=== PATIENT | female | born 1980 | race African-American/Black ===

== ENCOUNTER 2016-12-09 09:30 | Emergency (ER) | payer OTHER ==
[2016-12-09 09:42] VITALS: BP 110/77
--- NOTE | 2016-12-09 09:58 | ER Document Report ---
ED General - General Chief Complaint: Nausea/Vomiting/Diarrhea Stated Complaint: CONGESTION,SWEATS Time Seen by Provider: 12/09/16 09:52 TRAVEL OUTSIDE OF THE [place] IN LAST 30 DAYS: No - Related Data Allergies/Adverse Reactions: amoxicillin Allergy (Verified 12/09/16 09:42) Past Medical History - Social History Smoking Status: Never Smoker Chew tobacco use (# tins/day): No Frequency of alcohol use: None Drug Abuse: None Family History: Reviewed & Not Pertinent Renal/ Medical History: Denies: Hx Peritoneal Dialysis Past Surgical History: Reports: Hx Breast Surgery - L breast biopsy, Hx Oral Surgery, Hx Orthopedic Surgery - R and L ankle surgery in 2014 - Immunizations Hx Diphtheria, Pertussis, Tetanus Vaccination: Yes Physical Exam - Vital signs Vitals: Temp Pulse Resp BP Pulse Ox 99.5 F 119 H 18 110/77 100 12/09/16 09:37 12/09/16 09:37 12/09/16 09:37 12/09/16 09:37 12/09/16 09:37 Course - Vital Signs Vital signs: Temp Pulse Resp BP Pulse Ox 99.5 F 119 H 18 110/77 100 12/09/16 09:37 12/09/16 09:37 12/09/16 09:37 12/09/16 09:37 12/09/16 09:37 Discharge - Discharge Clinical Impression: Sinusitis Qualifiers: Sinusitis location: unspecified location Chronicity: unspecified Qualified Code (s): J32.9 - Chronic sinusitis, unspecified Condition: Good Disposition: HOME, SELF-CARE Instructions: Sinusitis ([facility]), Nausea or Vomiting, Nonspecific ([facility]) Additional Instructions: Examination is consistent with a sinus infection. Please take Zyrtec as prescribed please take antibiotics and prednisone as prescribed. We will send you home with Zofran for nausea. You can expect to have more diarrhea is that this is a side effect of antibiotics. Highly recommended to eat yogurt and increase your fiber intake. Please drink plenty of water and fluid containing electrolytes such as Gatorade or Powerade. Highly recommend he follow-up with ENT clinic in your primary care physician. Prescriptions: Ondansetron [Zofran Odt 4 mg Tablet] 4 mg PO Q4HP PRN #30 tab.rapdis PRN Reason: Azithromycin [Zithromax 250 mg Tablet] 500 mg PO DAILY #6 tab Cetirizine HCl [Zyrtec] 10 mg PO DAILY #30 tablet Prednisone [Deltasone 20 mg Tablet] 2 tab PO DAILY 5 Days Forms: Return to Work Referrals: ENT [Provider Group] - Follow up as needed [facility] [Provider Group] - Follow up as needed
== END 2016-12-09 10:00 | disposition home or self-care (01) ==
LOC: ER 09:30
DX: J32.9 Chronic sinusitis, unspecified (principal); R11.2 Nausea with vomiting, unspecified; R19.7 Diarrhea, unspecified
CPT/HCPCS: 99283

== ENCOUNTER 2017-01-18 16:51 | Emergency (ER) | payer OTHER ==
[2017-01-18] MEDS ORDERED: HYDROCODONE/ACETAMINOPHEN 5-325 MG 6 TAB/DSPK PO PRN (18:21)
--- NOTE | 2017-01-18 18:28 | ER Document Report ---
ED Hand/Wrist Injury - General Chief Complaint: Finger Injury Stated Complaint: RIGHT FINGER PAIN Time Seen by Provider: 01/18/17 17:56 Mode of Arrival: Ambulatory Information source: Patient Notes: 26-year-old female presents to ED for avulsion of the right middle fingernail. She states it lifted up some on Monday and then fell off today. [facility]. There is no redness no swelling no signs of infection. TRAVEL OUTSIDE OF THE [place] IN LAST 30 DAYS: No - HPI Injury to: Middle finger - Right Onset: Other - See HPI Where: Home Timing: Still present Quality of pain: Throbbing Severity: Moderate Pain Level: 3 Context: Other - Accidentally hit nail injuring her nail on Monday and then the nail fell off today. - Related Data Allergies/Adverse Reactions: amoxicillin Allergy (Verified 01/18/17 16:56) Past Medical History - General Information source: Patient - Social History Smoking Status: Never Smoker Cigarette use (# per day): No Chew tobacco use (# tins/day): No Smoking Education Provided: No Frequency of alcohol use: None Drug Abuse: None Family History: Reviewed & Not Pertinent Patient has suicidal ideation: No Patient has homicidal ideation: No - Past Medical History Cardiac Medical History: Reports: None Pulmonary Medical History: Reports: None EENT Medical History: Reports: None Neurological Medical History: Reports: None Endocrine Medical History: Reports: None Renal/ Medical History: Reports: None Malignancy Medical History: Reports: None GI Medical History: Reports: None Musculoskeltal Medical History: Reports Hx Musculoskeletal Deformity, Reports Hx Musculoskeletal Trauma Skin Medical History: Reports None Psychiatric Medical History: Reports: None Infectious Medical History: Reports: None Past Surgical History: Reports: Hx Breast Surgery - L breast biopsy, Hx Oral Surgery - Dental, Hx Orthopedic Surgery - R and L ankle surgery in 2014 - Immunizations Hx Diphtheria, Pertussis, Tetanus Vaccination: Yes Review of Systems - Review of Systems Constitutional: No symptoms reported EENT: No symptoms reported Cardiovascular: No symptoms reported Respiratory: No symptoms reported Gastrointestinal: No symptoms reported Genitourinary: No symptoms reported Female Genitourinary: No symptoms reported Musculoskeletal: No symptoms reported Skin: Other - Right middle finger nail avulsion Hematologic/Lymphatic: No symptoms reported Neurological/Psychological: No symptoms reported Physical Exam - Vital signs Vitals: Temp Pulse Resp BP Pulse Ox 98.7 F 100 18 130/92 H 99 01/18/17 16:54 01/18/17 16:54 01/18/17 16:54 01/18/17 16:54 01/18/17 16:54 Interpretation: Normal - General General appearance: Appears well, Alert - HEENT Head: Normocephalic, Atraumatic Eyes: Normal Pupils: PERRL - Respiratory Respiratory status: No respiratory distress Chest status: Nontender Breath sounds: Normal Chest palpation: Normal - Cardiovascular Rhythm: Regular Heart sounds: Normal auscultation Murmur: No - Abdominal Inspection: Normal Distension: No distension Bowel sounds: Normal Tenderness: Nontender Organomegaly: No organomegaly - Back Back: Normal, Nontender - Extremities General upper extremity: Normal color, Normal ROM, Normal temperature General lower extremity: Normal inspection, Nontender, Normal color, Normal ROM , Normal temperature, Normal weight bearing. No: Alessandra's sign Hand: Tender, Nail injury - Right middle finger nail avulsion complete, no redness no swelling no signs of infection, No evidence of human bite, No evidence of FB. No: Abrasion, Deformity, Dislocation, Ecchymosis, Instability, Laceration, Swelling, Tendon deficit - Neurological Neuro grossly intact: Yes Cognition: Normal Orientation: AAOx4 [place] Coma Scale Eye Opening: Spontaneous [place] Coma Scale Verbal: Oriented [place] Coma Scale Motor: Obeys Commands Ess[place] Coma Scale Total: 15 Speech: Normal Motor strength normal: LUE, RUE, LLE, RLE Sensory: Normal - Psychological Associated symptoms: Normal affect, Normal mood - Skin Skin Temperature: Warm Skin Moisture: Dry Skin Color: Normal Course - Re-evaluation Re-evalutation: 01/18/17 22:35 Cleaned with soap and water bacitracin and a Band-Aid applied patient was treated with [facility] dispense pack and instructed [facility] - Vital Signs Vital signs: Temp Pulse Resp BP Pulse Ox 98.7 F 91 18 112/81 100 01/18/17 18:32 01/18/17 18:32 01/18/17 18:32 01/18/17 18:32 01/18/17 18:32 Discharge - Discharge Clinical Impression: right finger nail avulsion Condition: Stable Disposition: HOME, SELF-CARE Instructions: Avulsed Nail ([facility]) Additional Instructions: SOAP CLEANSING: Gently wash the wound daily using a mild soap (like Ivory, Phisoderm, Neutrogena). Use warm water, rubbing gently until all debris, ooze, and crusting have been washed from the wound. Allow to dry briefly (about 10 minutes) after cleaning. Repeat this cleansing at least three times a day for the first two days and then once or twice a day. ANTIBIOTIC OINTMENT PROTECTION: Your wounds are such that dressing them is not practical or optional. After cleansing, you should apply a thin coating of antibiotic ointment ( Bacitracin, not Neosporin) to the wounds at least three times daily. This lessens infection risk, and may decrease the amount of scarring. Use a q-tip or dull butter knife, not your finger, to apply this ointment. Any debris or ooze which builds up in the ointment should be gently rubbed off with a sterile gauze pad. Harder crusting may need to be gently scrubbed off with a clean wash cloth with soap and warm water, perhaps applying a warm, wet wash cloth to the wound for ten minutes first. Development of redness, severe itching, or blistering may mean allergy to the ointment. See the doctor. ORAL NARCOTIC MEDICATION: You have been given a CRMnext dispense pack for pain control. This medication is a narcotic. It's best taken with food, as nausea can result if taken on an empty stomach. Don't operate machinery or drive within six hours of taking this medication. Do not combine this medicine with alcohol, or with any medication which can cause sedation (such as cold tablets or sleeping pills) unless you get permission from the physician. Narcotics tend to cause constipation. If possible, drink plenty of fluids and eat a diet high in fiber and fruits. FOLLOW-UP CARE: If you have been referred to a physician for follow-up care, call the physician s office for an appointment as you were instructed or within the next two days. If you experience worsening or a significant change in your symptoms, notify the physician immediately or return to the Emergency Department at any time for re-evaluation. Forms: Elevated Blood Pressure
[2017-01-18 18:35] VITALS: BP 112/81
== END 2017-01-18 18:35 | disposition home or self-care (01) ==
LOC: ER 16:51
DX: S61.302A Unspecified open wound of right middle finger with damage to nail, initial encounter (principal); M79.644 Pain in right finger(s); X58.XXXA Exposure to other specified factors, initial encounter
CPT/HCPCS: 99283

== ENCOUNTER 2017-05-02 11:24 | Emergency (ER) | payer OTHER ==
--- NOTE | 2017-05-02 11:53 | ER Document Report ---
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 Has appt this Associated Symptoms: None Exacerbated by: Denies Relieved by: Other - holding base of finger and applying pressure - ROS ROS below otherwise negative: Yes Systems Reviewed and Negative: Yes All other systems reviewed and negative Past Medical History - General Information source: Patient - Social History Smoking Status: Never Smoker Frequency of alcohol use: None Drug Abuse: None Lives with: Family Family History: Reviewed & Not Pertinent - Medical History Notes: melanoma Renal/ Medical History: Denies: Hx Peritoneal Dialysis Musculoskeltal Medical History: Reports Hx Musculoskeletal Deformity, Reports Hx Musculoskeletal Trauma Past Surgical History: Reports: Hx Breast Surgery - L breast biopsy, Hx Oral Surgery - Dental, Hx Orthopedic Surgery - R and L ankle surgery in 2013 - Immunizations Hx Diphtheria, Pertussis, Tetanus Vaccination: Yes Vertical Provider Document - CONSTITUTIONAL Agree With Documented VS: Yes Exam Limitations: No Limitations General Appearance: Mild Distress - INFECTION CONTROL TRAVEL OUTSIDE OF THE [place] IN LAST 30 DAYS: No - HEENT HEENT: Normocephalic - NECK Neck: Supple - RESPIRATORY O2 Sat by Pulse Oximetry: 96 - MUSCULOSKELETAL/EXTREMETIES Musculoskeletal/Extremeties: Tender - moist skin graft with swelling and exudate dorsal middle finger right fingertip - NEURO Level of Consciousness: Awake, Alert, Appropriate Motor/Sensory: No Motor Deficit, No Sensory Deficit - DERM Notes: see above Course - Re-evaluation Re-evalutation: 05/02/17 13:34 no joy change on xray, will tx with keflex, pain rx and see [facility] on as planned, I will have her call to see if she can be seen tomorrow monday. - Vital Signs Vital signs: Temp Pulse Resp BP Pulse Ox 99.0 F 99 14 129/76 H 96 05/02/17 11:32 05/02/17 11:32 05/02/17 11:32 05/02/17 11:32 05/02/17 11:32 Discharge - Discharge Clinical Impression: right middle finger pain post op Condition: Good Disposition: HOME, SELF-CARE Instructions: Elevation & Warmth ([facility]), Infections ([facility]) Additional Instructions: wound culture of the middle finger is pending there is no bone infection you have been restarted on Keflex for possible infection Call [facility] today and see if they can see you Monday instead of for follow-up Elevate her finger above your heart will reduce the throbbing Prescriptions: Cephalexin Monohydrate [Keflex 500 mg Capsule] 500 mg PO QID #28 capsule Oxycodone HCl/Acetaminophen [Percocet 5-325 mg Tablet] 1 - 2 tab PO ASDIR PRN # 10 tablet PRN Reason:
[2017-05-02] MEDS ORDERED: OXYCODONE-ACETAMINOPHEN 5-325 MG TABLET PO ONE (11:59)
[2017-05-02] MEDS ORDERED: ACETAMINOPHEN 325 MG TABLET PO ONE (11:59)
[2017-05-02] MEDS ORDERED: CEPHALEXIN 500 MG CAPSULE PO ONE (12:00)
[2017-05-02] MEDS ORDERED: ONDANSETRON 4 MG TAB.RAPDIS PO ONE (12:00)
--- NOTE | 2017-05-02 12:54 | RADIOLOGY REPORT (SQ) ---
EXAM DESCRIPTION: FINGER RIGHT/ attention right long finger COMPLETED DATE/TIME: 05/02/2017 12:39 pm REASON FOR STUDY: s/p melanoma removal, skin graft COMPARISON: None. NUMBER OF VIEWS: Three views. TECHNIQUE: AP, lateral, and oblique images acquired of the right long finger LIMITATIONS: None. FINDINGS: MINERALIZATION: Normal. BONES: No acute fracture or dislocation. No worrisome bone lesions. SOFT TISSUES: Operative changes seen soft tissues distally. No metallic foreign bodies. OTHER: No other significant finding. IMPRESSION: No acute bony changes. COMMENT: SITE OF TRAUMA/COMPLAINT MARKED/STAMP COMPLETED: Yes TECHNICAL DOCUMENTATION: JOB ID: [id number] [employer]- All Rights Reserved
[2017-05-02 14:20] VITALS: BP 121/87
== END 2017-05-02 14:21 | disposition home or self-care (01) ==
LOC: ER 11:24
DX: G89.18 Other acute postprocedural pain (principal); M79.644 Pain in right finger(s)
CPT/HCPCS: 87070; 87077; 87186; 87205; 99283

== ENCOUNTER 2019-03-25 07:27 | Emergency (ER) | payer OTHER ==
[2019-03-25 07:33] VITALS: BP 120/65
[2019-03-25] MEDS ORDERED: KETOROLAC TROMETHAMINE 60 MG/2 ML SDV IM ONE (09:12)
--- NOTE | 2019-03-25 09:27 | ER Document Report ---
ED General - General Chief Complaint: lower back pain Stated Complaint: LOW BACK, RIGHT HIP PAIN Time Seen by Provider: 03/25/19 08:43 Primary Care Provider: [facility] [Primary Care Provider] - Follow up in 3-5 days MARVIN GALVEZ DO [ACTIVE STAFF] - Follow up as needed Notes: 38-year-old female presents with chronic right hip and chronic low back pain. Patient denies any recent injuries. Patient denies any changes with her pain. Patient states she is currently being worked up at the [place] for same and has done PT without any relief. Patient denies any difficulty with urinating or defecating or any groin numbness. TRAVEL OUTSIDE OF THE [place] IN LAST 30 DAYS: No - Related Data Allergies/Adverse Reactions: amoxicillin Allergy (Verified 05/02/17 11:26) Home Medications: monolukast. atif Past Medical History - Social History Smoking Status: Never Smoker Frequency of alcohol use: None Drug Abuse: None Family History: Reviewed & Not Pertinent Patient has suicidal ideation: No Patient has homicidal ideation: No Renal/ Medical History: Denies: Hx Peritoneal Dialysis Musculoskeletal Medical History: Reports Hx Musculoskeletal Deformity, Reports Hx Musculoskeletal Trauma Past Surgical History: Reports: Hx Breast Surgery - L breast biopsy, Hx Oral Surgery - Dental, Hx Orthopedic Surgery - R and L ankle surgery in 2013 - Immunizations Hx Diphtheria, Pertussis, Tetanus Vaccination: Yes Review of Systems - Review of Systems Notes: Constitutional: Negative for fever. HENT: Negative for sore throat. Eyes: Negative for visual changes. Cardiovascular: Negative for chest pain. Respiratory: Negative for shortness of breath. Gastrointestinal: Negative for abdominal pain, vomiting or diarrhea. Genitourinary: Negative for dysuria. Musculoskeletal: Positive for back pain and right hip pain. Skin: Negative for rash. Neurological: Negative for headaches, weakness or numbness. 10 point ROS negative except as marked above and in HPI. Physical Exam - Vital signs Vitals: Temp Pulse Resp BP Pulse Ox 98.2 F 92 14 120/65 99 03/25/19 07:31 03/25/19 07:31 03/25/19 07:31 03/25/19 07:31 03/25/19 07:31 - Notes Notes: GENERAL: Well-appearing, well-nourished and in no acute distress. HEAD: Atraumatic, normocephalic. EYES: Extraocular movements intact, sclera anicteric, conjunctiva are normal. NECK: Normal range of motion, supple without lymphadenopathy or JVD. EXTREMITIES: Normal range of motion, no pitting or edema. No clubbing or cyanosis. No spinal tenderness. No hip tenderness. FROM to hip. NEUROLOGICAL: Cranial nerves II through XII grossly intact. Normal speech, normal gait. PSYCH: Normal mood, normal affect. SKIN: Warm, Dry, normal turgor, no rashes or lesions noted. Course - Re-evaluation Re-evalutation: 03/25/19 38-year-old female presents for chronic low back pain and right hip pain. Patient denies any changes with the pain. Patient denies any recent injuries. Patient denies any groin numbness or difficulty with urinating or defecating. No rapid progression of symptoms, systemic symptoms including fevers, chills, weight loss, history of recent bacterial infection, bilateral symptoms, numbness, weakness, difficulty walking, urinary retention or bowel incontinence, personal history of cancer, immunosuppression, diabetes, known AAA, or history of IV drug use. Exam is without point tenderness over vertebral bodies, pulsatile abdominal mass, and patient has symmetric and intact lower extremity strength, sensation, and reflexes without clonus. 2+ symmetric medial malleolar and dorsalis pedis pulses. Based on history and physical, I have a very low suspicion of a concerning etiology of pain including epidural compression syndrome, spinal infection, transverse myelitis, malignancy, abdominal aortic aneurysm, renal colic, acute lower extremity claudication, neurogenic claudication, ankylosing spondylitis, or other intra-abdominal process. Due to absence of concerning risk factors in history and physical as well as absence of rapidly progressive, severe, or bilateral symptoms, will defer imaging at this point. Patient to follow-up with PCP and possibly Ortho. Patient given prescriptions for ibuprofen and Flexeril with sedation warning. Patient voices understanding and agrees with plan of care. - Vital Signs Vital signs: Temp Pulse Resp BP Pulse Ox 98.2 F 92 14 120/65 99 03/25/19 07:31 03/25/19 07:31 03/25/19 07:31 03/25/19 07:31 03/25/19 07:31 Discharge - Discharge Clinical Impression: Chronic right hip pain Chronic low back pain Qualifiers: Back pain laterality: unspecified Sciatica presence: unspecified whether sciatica present Qualified Code(s): M54.5 - Low back pain Condition: Stable Disposition: HOME, SELF-CARE Instructions: Ice Packs ([facility]), Low Back Pain ([facility]), Pain Medication Injection ([facility]), Warm Packs ([facility]) Additional Instructions: Please take medications as prescribed. Do not drink or drive while taking muscle relaxers as they may make you sleepy. Follow-up with your primary care doctor in 3 to 5 days. Follow-up with Ortho as referred. Return to ER if you start having any worsening symptoms, fever, worsening pain, inability to walk, difficulty with urinating/defecating, or any other concerning symptoms to you. Prescriptions: Cyclobenzaprine HCl [Flexeril 10 mg Tablet] 10 mg PO TIDP PRN #15 tab PRN Reason: Ibuprofen [Motrin 800 mg Tablet] 800 mg PO Q8H PRN #30 tab PRN Reason: [facility] - Follow up in 3-5 days MARVIN GALVEZ DO [ACTIVE STAFF] - Follow up as needed
== END 2019-03-25 09:42 | disposition home or self-care (01) ==
LOC: ER 07:27
DX: G89.29 Other chronic pain (principal); M54.5 Low back pain; M25.551 Pain in right hip; Z79.899 Other long term (current) drug therapy; Z79.3 Long term (current) use of hormonal contraceptives; Z88.0 Allergy status to penicillin
CPT/HCPCS: 99283; 96374; 81025; J1885